=== PATIENT | male | born 1995 | race Caucasian/White ===

== ENCOUNTER 2017-02-03 23:19 | Emergency (ER) | payer OTHER ==
--- NOTE | 2017-02-03 23:24 | PDOC ---
History of Present Illness - General Chief Complaint: Psychiatric Stated Complaint: HAD MANIC EPISODE TODAY - History of Present Illness Initial Comments: 02/03/17 23:26 Pt presents to the ED complaining of a "manic episode". Pt states that he has "racing thoughts" and is unable to sleep. Patient denies SI, HI or hallucinations. Parents state that he has been seeking psychiatric care on his own and refused to allow his mother to come to his appointments. Parents became confused because he was crying and saying things to them at home that did not make sense. Patient was started on bupropion last week by a clinic at [facility]. He has just started taking the medicine, and he states that it does not make him "feel good". Patient is calm and cooperative with a flat affect. He denies SI or HI and is able to contract for safety. He reports that he was able to sleep yesterday and the day before, but that he is unable to sleep today. Mother reports that the patient has no history of psychiatric problems. Past History - Past Medical History Allergies/Adverse Reactions: Allergies Allergy/AdvReac Type Severity Reaction Status Date / Time No Known Allergies Allergy Verified 11/05/12 09:13 Home Medications: Ambulatory Orders Bupropion HCl [Wellbutrin Sr] 150 mg PO BID 02/03/17 - Suicide/Smoking/Psychosocial Hx Smoking Status: No Smoking History: Never smoked Number of Cigarettes Smoked Daily: 0 Review of Systems - Review of Systems Constitutional: No: Symptoms Reported, See HPI, Chills, Diaphoresis, Fever, Loss of Appetite, Malaise, Night Sweats, Weakness, Weight Stable, Unintentional Wgt. Loss, Unexplained wgt Loss, Other Respiratory: No: Symptoms reported, See HPI, Cough, Orthopnea, Shortness of Breath, SOB with Exertion, SOB at Rest, Stridor, Wheezing, Productive cough, Hemoptysis, Other Cardiac (ROS): No: Symptoms Reported, See HPI, Chest Pain, Edema, Irregular Heart Rate, Lightheadedness, Palpitations, Syncope, Chest Tightness, Other ABD/GI: No: Symptoms Reported, See HPI, Abdominal Distended, Abd. Pain w/ defecation, Blood Streaked Bowels, Constipated, Diarrhea, Difficulty Swallowing , Nausea, Poor Appetite, Poor Fluid Intake, Rectal Bleeding, Vomiting, Indigestion, Abdominal cramping, Tarry Stools, Other : No: Symptoms Reported, See HPI, Burning, Dysuria, Discharge, Frequency, Flank Pain, Hematuria, Incontinence, Pain, Urgency, Testicular Mass, Testicular Swelling, Lesions, Testicular Pain, Other Musculoskeletal: No: Symptoms Reported, See HPI, Back Pain, Gout, Joint Pain, Joint Swelling, Muscle Pain, Muscle Weakness, Neck Pain, Joint Stiffness, Other Integumentary: No: Symptoms Reported, See HPI, Bruising, Change in Color, Change in Hair/Nails, Dryness, Erythema, Flushing, Lesions, Lumps, Pallor, Pruritus, Rash, Sweating, Other Neurological: No: Symptoms reported, See HPI, Headache, Numbness, Paresthesia, Pre-Existing Deficit, Seizure, Tingling, Tremors, Weakness, Unsteady Gait, Ataxia, Dizziness, Other Psychiatric: Yes: Anxiety, Depression, Frequent Crying, Sleep Pattern Change *Physical Exam - Physical Exam General Appearance: Yes: Nourished, Appropriately Dressed. No: Apparent Distress, Disheveled, Mild Distress, Moderate Distress, Severe Distress, Alcohol on Breath, Intoxicated, Cachetic, Obese, Thin, Other Neck: positive: Supple Respiratory/Chest: positive: Lungs Clear, Normal Breath Sounds Cardiovascular: positive: Regular Rhythm, Regular Rate, S1, S2 Gastrointestinal/Abdominal: positive: Flat, Soft. negative: Normal Bowel Sounds , Tender, Organomegaly, Pulsatile Mass, Increased Bowel Sounds, Decreased BS, Protuberent, Distended, Guarding, Rebound, Tenderness, Hernia, Mass, Hepatomegaly, Spleenomegaly, Other Musculoskeletal: positive: Normal Inspection Integumentary: positive: Normal Color, Dry, Warm. negative: Cyanotic, Erythema , Jaundice, Mottled, Pale, Cold, Clammy, Diaphoresis, Moist, Hives, Petechiae, Rash, Swelling, Ecchymosis, Bruising, Other Neurologic: positive: Fully Oriented, Alert. negative: certified novell engineer II-XII NML intact, Normal Mood/Affect (flat mood and affect. ), Normal Response, Motor Strength 5/ 5, Abnormal Cranial NS, Respond to painful stimul, Responsive, EOM Palsy, Facial Droop, Numbness, Sensory Deficit, Finger to Nose, Confused, Disoriented, Depressed Affect, Babinski, Other ED Treatment Course - LABORATORY CBC & Chemistry Diagram: 02/04/17 00:00 02/04/17 00:00 Medical Decision Making - Medical Decision Making 02/03/17 23:34 Pt presents to the ED complaining of "manic thoughts". Calm and cooperative in the ED, with flat mood and affect. Patient has sought psychiatric care on his own and has follow up with a clinic at [facility]. Patient called the clinic and spoke to the practioner there, but is unable to recall what he was told to do. Patient is able to call the clinic for follow up tomorrow and to contract for safety. His psychiatric issues appear to be chronic. He does not appear to be actively psychotic. Since he has no prior psychatric history and it is unclear to me what medical work up has been done for him, I will check labs and UDS. Will consider discharge home if lab work is negative. PAtient does not appear to represent a danger to himself or others. 02/04/17 01:14 Pt and his mother are asking to leave AMA before blood work is back. Patient tells me that his mother has had spinal surgery and it is painful for her to sit for long periods. Patient understands the risks of leaving, including electrolyte disturbance and . *DC/Admit/Observation/Transfer Diagnosis at time of Disposition: Insomnia Qualifiers: Insomnia type: primary Qualified Code(s): F51.01 - Primary insomnia; F51.01 - Primary insomnia - Discharge Dispostion Disposition: AGAINST MEDICAL ADVICE Condition at time of disposition: Good
[2017-02-03 23:25] VITALS: BP 124/78; PULSE 74; TEMP 98.9; BMI 26.9
[2017-02-04 00:57] LABS: BASOPHIL 0.3 % (0-2.0); EOSINOPHIL 0.5 % (0-4.5); MCH 31.7 pg (25.7-33.7); MCHC 33.9 g/dl (32.0-35.9); MEAN CELL VOLUME 93.4 fl (80-96); MEAN PLT VOLUME 8.9 fl (7.5-11.1); PLATELET COUNT 240 K/MM3 (134-434); RDW 13.8 % (11.9-15.9); WHITE BLOOD COUNT 10.1 K/mm3 (4.0-10.0)
[2017-02-04 01:20] LABS: ALBUMIN 4.1 g/dl (3.4-5.0); ANION GAP 9 (8-16); BILIRUBIN,TOTAL 0.7 mg/dL (0.2-1.0); CALCIUM 8.8 mg/dL (8.5-10.1); CO2 25 mmol/L (21-32); CREATININE 0.9 mg/dL (0.7-1.3); GLUCOSE,RANDOM 99 mg/dL (74-106); SGOT/AST 13 U/L (15-37); SGPT/ALT 25 U/L (12-78); TOT PROT 7.6 g/dl (6.4-8.2)
[2017-02-04 01:21] LABS: ALK PHOS 127 U/L (45-117)
[2017-02-04 02:39] LABS: URINE MARIJUANA THC NEGATIVE ng/ml (CUTOFF=50)
== END 2017-02-04 01:10 | disposition left against medical advice (07) ==
LOC: FER 23:19
DX: F51.01 Primary insomnia (principal)
CPT/HCPCS: 36415; 80053; 80307; 85025; 99282-25

== ENCOUNTER 2017-07-08 09:37 | Emergency (ER) | payer OTHER ==
[2017-07-08 09:45] VITALS: BP 147/88; PULSE 78; TEMP 97.6; BMI 29.7
--- NOTE | 2017-07-08 10:10 | PDOC ---
History of Present Illness - General Chief Complaint: Psychiatric Stated Complaint: RX, EVALUATION Time Seen by Provider: 07/08/17 10:07 History Source: Patient Exam Limitations: No Limitations - History of Present Illness Initial Comments: CHIEF COMPLAINT: 21 y/o male with PMH bipolar disorder c/o insomnia x 4 days. HISTORY OF PRESENT ILLNESS: the patient is supposed to be taking lithium and risperidone but hasn't taken them since May. He admits he hasn't been able to sleep in 4 days. His mother is at bedside. He has no other complaints. He denies suicidal and homicidal ideations. Vital signs on arrival are within normal limits. REVIEW OF SYSTEMS: GENERAL/CONSTITUTIONAL: No fever/chills. No weakness. No weight change. HEAD, EYES, EARS, NOSE AND THROAT: No change in vision. No ear pain or discharge. No sore throat. CARDIOVASCULAR: No chest pain or shortness of breath. RESPIRATORY: No cough, wheezing, or hemoptysis. GASTROINTESTINAL: No abd pain, nausea, vomiting, diarrhea. GENITOURINARY: No dysuria, frequency, or change in urination. MUSCULOSKELETAL: No joint or muscle swelling or pain. No neck or back pain. SKIN: No rash or easy bruising. NEUROLOGIC: +insomnia. No headache, vertigo, loss of consciousness, or loss of sensation. PSYCH: No suicidal or homicidal ideations. PHYSICAL EXAM: GENERAL: The patient is awake, alert, in no acute distress. he has trouble focusing. HEAD: Normal with no signs of trauma. ENT: Pupils equal, round and reactive to light, extraocular movements intact, sclera anicteric, conjunctiva clear. Neck supple. LUNGS: Clear to auscultation bilaterally. Normal excursion. No respiratory distress or use of accessory muscles. CV: RRR, S1/S2, no MRG. Cap refill < 2 sec. ABDOMEN: Soft, non-distended, non-tender even to deep palpation, no hepatomegaly or splenomegaly, no masses. EXTREMITIES: Normal range of motion, no edema. NEUROLOGICAL: Slowed responses to questions, normal gait. CN II-XII grossly intact. PSYCH: Disoriented. Depressed and flat affect SKIN: Warm, dry, normal turgor, no rashes or lesions noted. Past History - Past Medical History Allergies/Adverse Reactions: Allergies Allergy/AdvReac Type Severity Reaction Status Date / Time No Known Allergies Allergy Verified 11/05/12 09:13 Home Medications: Ambulatory Orders Bupropion HCl [Wellbutrin Sr] 150 mg PO BID 02/03/17 [place] Carbonate [Eskalith -] 600 mg PO BID 07/08/17 COPD: No Psychiatric Problems: Yes (Anxiety and Insomnia) - Suicide/Smoking/Psychosocial Hx Smoking Status: No Smoking History: Never smoked Have you smoked in the past 12 months: No Number of Cigarettes Smoked Daily: 0 Information on smoking cessation initiated: No Hx Alcohol Use: No Drug/Substance Use Hx: No Substance Use Type: None *Physical Exam - Vital Signs Last Vital Signs Temp Pulse Resp BP Pulse Ox 97.6 F 78 16 147/88 99 07/08/17 09:40 07/08/17 09:40 07/08/17 09:40 07/08/17 09:40 07/08/17 09:40 ED Treatment Course - LABORATORY CBC & Chemistry Diagram: 07/08/17 12:14 07/08/17 12:14 Medical Decision Making - Medical Decision Making A/P: 21 y/o male with history of bipolar disorder c/o insomnia x 4 days. He has not taken his lithium or risperidone for the past 6 weeks. His psychiatry teacher is Keo Dinh. Plan is as follows: 1. Get in touch with ETHEL Dinh 2. UA/culture 3. basic labs The patient is calm and cooperative in the ER. He is disoriented at times with flat/depressed affect. He is accompanied by his mother who is concerned by his affect. The patient has sought psychiatric treatment in the past and has a prescribing CIVIL ENGINEERING DESIGN DRAFTSPERSON but stopped taking his medication because "it makes him fat". His psychiatric issues are chronic and is not acutely psychotic. Patient maintains that he has no thoughts of hurting himself or others. Labs ok UA with 2+ ketones. Spoke with ETHEL Dinh. He has sent refills to the patient's pharmacy. He also informs me that the patient has an appointment with him tomorrow in his office. Gave patient and mother the lab results. Suggested he pick pulling machine tender his medications on the way home and begin taking immediately. Instructed him to keep appointment scheduled for tomorrow with his psychiatry teacher. Instructed him to drink at least 64oz of water daily and return to the ER immediately with any worsening or concerning symptoms. The patient and his mom verbalize understanding of all instructions, have no further questions and are awaiting discharge. *DC/Admit/Observation/Transfer Diagnosis at time of Disposition: Insomnia Qualifiers: Insomnia type: due to other mental disorder Qualified Code(s): F51.05 - Insomnia due to other mental disorder - Discharge Dispostion Disposition: HOME Condition at time of disposition: Good - Referrals Referrals: Yanira Santos [Primary Care Provider] - - Patient Instructions Printed Discharge Instructions: DI for Bipolar Disorder, DI for Insomnia Additional Instructions: Discharge Instructions: -Your labs and your urine test were normal -You have an appointment with your psychiatrist scheduled for tomorrow; please do not miss it -Refills for your medications have been sent to your pharmacy; please start taking today -Return to the ER with any worsening or concerning symptoms. Instrucciones de descarga: -Tus laboratorios y tu prueba de orina daryl normales - Tiene alyssa rukhsana con gallo psiquiatra programada para maana; Por favor, no se lo pierda -Los reembolsos por aayush medicamentos ryder sido enviados a gallo farmacia; por favor comienza a arcenio hoy -Volver a la chelsea de emergencias con cualquier empeoramiento o sntomas. Print Language: TONGAN - Post Discharge Activity
--- NOTE | 2017-07-08 11:49 | PDOC ---
*Physical Exam - Vital Signs Last Vital Signs Temp Pulse Resp BP Pulse Ox 97.6 F 78 16 147/88 99 07/08/17 09:40 07/08/17 09:40 07/08/17 09:40 07/08/17 09:40 07/08/17 09:40 ED Treatment Course - LABORATORY CBC & Chemistry Diagram: 07/08/17 12:14 07/08/17 12:14 Medical Decision Making - Medical Decision Making 07/08/17 11:47 Pt seen by the Advanced Practice Provider under my direct supervision Ancillary studies reviewed I agree with plan as outlined by the Advanced Practice Provider PRATIBHA Rivera *DC/Admit/Observation/Transfer Diagnosis at time of Disposition: Insomnia - Discharge Dispostion Disposition: HOME Condition at time of disposition: Good - Referrals Referrals: Yanira Santos [Primary Care Provider] - - Patient Instructions Printed Discharge Instructions: DI for Bipolar Disorder, DI for Insomnia Additional Instructions: Discharge Instructions: -Your labs and your urine test were normal -You have an appointment with your psychiatrist scheduled for tomorrow; please do not miss it -Refills for your medications have been sent to your pharmacy; please start taking today -Return to the ER with any worsening or concerning symptoms. Instrucciones de descarga: -Tus laboratorios y tu prueba de orina daryl normales - Tiene alyssa rukhsana con gallo psiquiatra programada para maana; Por favor, no se lo pierda -Los reembolsos por aayush medicamentos ryder sido enviados a gallo farmacia; por favor comienza a arcenio hoy -Volver a la chelsea de emergencias con cualquier empeoramiento o sntomas. Print Language: AZERI - Post Discharge Activity
[2017-07-08 12:24] LABS: URINE APPEARANCE CLEAR; URINE BILIRUBIN NEGATIVE (NEGATIVE); URINE BLOOD NEGATIVE (NEGATIVE); URINE COLOR YELLOW; URINE GLUCOSE (UA) NEGATIVE (NEGATIVE); URINE KETONE 2+ (NEGATIVE); URINE LEUK ESTERASE NEGATIVE (NEGATIVE); URINE NITRITE NEGATIVE (NEGATIVE); URINE PROTEIN NEGATIVE (NEGATIVE)
[2017-07-08 12:42] LABS: BASO % 0.9 % (0-2.0); EOS % 3.4 % (0-4.5); HEMATOCRIT 47.3 % (35.4-49); HEMOGLOBIN 16.5 GM/dL (11.7-16.9); LYMPH % 18.7 % (8-40); MCH 31.7 pg (25.7-33.7); MCHC 34.8 g/dl (32.0-35.9); MEAN CELL VOLUME 90.9 fl (80-96); MEAN PLT VOLUME 8.4 fl (7.5-11.1); MONO % 6.7 % (3.8-10.2); NEUT % 70.3 % (42.8-82.8); PLATELET COUNT 216 K/MM3 (134-434); RDW 13.6 % (11.9-15.9); WHITE BLOOD COUNT 6.9 K/mm3 (4.0-10.0)
[2017-07-08 13:06] LABS: ALBUMIN 4.8 g/dl (3.4-5.0); ALK PHOS 153 U/L (45-117); ANION GAP 6 (8-16); BLOOD UREA NITROGEN 12 mg/dL (7-18); CHLORIDE 107 mmol/L (98-107); CO2 25 mmol/L (21-32); CREATININE 0.8 mg/dL (0.7-1.3); GLUCOSE,RANDOM 100 mg/dL (74-106); MAGNESIUM 2.3 mg/dL (1.8-2.4); SGOT/AST 19 U/L (15-37); SGPT/ALT 18 U/L (12-78); SODIUM 138 mmol/L (136-145); TOT PROT 8.3 g/dl (6.4-8.2)
== END 2017-07-08 14:17 | disposition home or self-care (01) ==
LOC: JER 09:37
DX: F51.05 Insomnia due to other mental disorder (principal); F31.9 Bipolar disorder, unspecified; Z91.14 Patient's other noncompliance with medication regimen
CPT/HCPCS: 36415; 80053; 81003; 83735; 85025; 87086; 99283-25

== ENCOUNTER 2018-11-25 22:17 | Emergency (ER) | payer OTHER ==
[2018-11-25 22:26] VITALS: BP 129/90; PULSE 83; TEMP 98.4; BMI 30.4
[2018-11-25] MEDS ORDERED: IBUPROFEN 600 MG TABLET (FP) PO ONE ×2 (23:42→23:49)
--- NOTE | 2018-11-26 00:29 | PDOC ---
Documentation entered by Quoc London SCRIBE, acting as scribe for Catherine Shin MD. Catherine Shin MD: This documentation has been prepared by the Surya cloud Daniel, SCRIBE, under my direction and personally reviewed by me in its entirety. I confirm that the documentation accurately reflects all work, treatment, procedures, and medical decision making performed by me. History of Present Illness - General Chief Complaint: Injury Stated Complaint: LT KNEE INJURY Time Seen by Provider: 11/25/18 22:19 History Source: Patient Exam Limitations: No Limitations - History of Present Illness Initial Comments: 11/25/18 23:46 The patient is a 23 year old male with no past medical history here today for evaluation of left knee pain. The patient reports that his left knee pain began 3 hours while he was playing basketball and was bumped slightly from behind. He notes that after being bumped his left knee wobbled and popped 3 times. He reports that his pain is most prominent in the medial and lateral aspects with the medial aspect being worse than the lateral aspect. He notes that his pain is worse with movement and is a 7/10. He denies falling or head strike. Allergies: NKA Social history: Denies tobacco, alcohol, or illicit drug use. Past History - Past Medical History Allergies/Adverse Reactions: Allergies Allergy/AdvReac Type Severity Reaction Status Date / Time No Known Allergies Allergy Verified 11/05/12 09:13 Home Medications: Ambulatory Orders NK [No Known Home Medication] 11/25/18 COPD: No Psychiatric Problems: Yes (Anxiety and Insomnia) - Suicide/Smoking/Psychosocial Hx Smoking Status: No Smoking History: Never smoked Have you smoked in the past 12 months: No Number of Cigarettes Smoked Daily: 0 Hx Alcohol Use: No Drug/Substance Use Hx: No Substance Use Type: None Review of Systems - Review of Systems Able to Perform ROS?: Yes Comments:: 11/25/18 23:46 All systems are reviewed and negative except as noted in the HPI *Physical Exam - Vital Signs Last Vital Signs Temp Pulse Resp BP Pulse Ox 98.4 F 83 16 129/90 98 11/25/18 22:21 11/25/18 22:21 11/25/18 22:21 11/25/18 22:21 11/25/18 22:21 - Physical Exam Comments: 11/25/18 23:46 GENERAL: Awake, alert, and fully oriented, in no acute distress HEAD: No signs of trauma EYES: PERRLA, EOMI, sclera anicteric, conjunctiva clear ENT: Auricles normal inspection, hearing grossly normal, nares patent, oropharynx clear without exudates. Moist mucosa NECK: Normal ROM, supple, no lymphadenopathy, JVD, or masses LUNGS: Breath sounds equal, clear to auscultation bilaterally. No wheezes, and no crackles HEART: Regular rate and rhythm, normal S1 and S2, no murmurs, rubs or gallops ABDOMEN: Soft, nontender, normoactive bowel sounds. No guarding, no rebound. No masses EXTREMITIES: +pain on flexion and extension of left knee. +tenderness and edema of medial and lateral tibial plateau, medial more than lateral. No ligament instability. No ecchymosis or deformity. Normal range of motion. No clubbing or cyanosis. No cords, erythema NEUROLOGICAL: Cranial nerves II through XII grossly intact. Normal speech, normal gait SKIN: Warm, Dry, normal turgor, no rashes or lesions noted. ED Treatment Course - RADIOLOGY Radiology Studies Ordered: Category Date Time Status KNEE 3 POS-LEFT [RAD] Stat Radiology 11/25/18 22:19 Taken Medical Decision Making - Medical Decision Making As noted above, this otherwise healthy 23-year-old male presents with pain and new instability of his left knee that began a few hours prior to presentation while patient was playing basketball. The patient had no significant trauma or fall associated with the pain. He was lightly bumped from behind but had sensation of knee buckling laterally and medially immediately after the minor trauma. Although he did not fall, he states he lay on the floor holding his knee in pain after this occurred. Since then, he has had pain with weightbearing. No previous history of knee instability/weakness/injury. No other complaints. Exam is noted. Clinical presentation consistent with knee sprain, likely medial collateral ligament since medial aspect of his knee is more tender than lateral aspect. Patient given ibuprofen 600 mg by mouth. Knee immobilizer placed and crutches given(adjusted for height and crutch walking instruction given). Patient does not have an orthopedist and he will be given referral information for on-call group:[facility] with whom he should follow-up within the next few days. He can take OTC ibuprofen/naproxen/acetaminophen as needed for pain and knee should be elevated/iced as much as possible for the next 48 hours *DC/Admit/Observation/Transfer Diagnosis at time of Disposition: Left knee sprain Qualifiers: Encounter type: initial encounter Involved ligament of knee: medial collateral ligament Qualified Code(s): S83.412A - Sprain of medial collateral ligament of left knee, initial encounter - Discharge Dispostion Disposition: HOME Condition at time of disposition: Stable - Referrals Referrals: Fredrick Ortega DO [Staff Physician] - Odilon Spangler DO [Staff Physician] - - Patient Instructions Printed Discharge Instructions: Knee Sprain Additional Instructions: Elevate/ice to left knee as much as possible over the next 2 days Knee immobilizer when up and around until seen by orthopedist Crutches for ambulation until seen by orthopedist Motrin/Aleve/Tylenol as needed for pain Call orthopedic office (Celina Ortega/Aníbal) on Tuesday, November 27 to arrange follow- up within the next 2-3 days - Post Discharge Activity
== END 2018-11-26 00:02 | disposition home or self-care (01) ==
LOC: FER 22:17
DX: S83.412A Sprain of medial collateral ligament of left knee, initial encounter (principal); X58.XXXA Exposure to other specified factors, initial encounter; Y93.67 Activity, basketball; Y92.310 Basketball court as the place of occurrence of the external cause
CPT/HCPCS: 73562-TC-LT-FY; 99281-25